=== PATIENT | female | born 1950 | race Caucasian/White ===

== ENCOUNTER → 2017-12-18 | Outpatient (CLI) | payer MEDICARE, OTHER ==
[2017-05-21 17:54] VITALS: BMI 29.2
[~2017-12-18] MED LIST: ASPI-715 PO; ASPI-757 PO; CALC-598 PO; CALC-852 PO; CELE-1 PO; DIA5 PO; EPIN5DRO OP; FEXO180T87 PO; GLUC-222 PO; HYDR-4308 PO; LEVO50TA80 PO; LOR10 PO; MELO-205 PO; MELO-207 PO; MOMR; NITR-57 PO; OMEG-36 PO; RAL60 PO
--- NOTE | 2017-12-18 16:14 | RADIOLOGY IMAGING REPORT ---
[place] [facility] [place] GARRETT CHURCHILL : [id number] MR: [id number] V: [id number] EXAM DATE: [id number] ORDERING PHYSICIAN: KYLEE BRIGHT TECHNOLOGIST: Nikki Cortes PROCEDURE:BILATERAL DIGITAL SCREENING MAMMOGRAM WITH CAD ASSISTED INTERPRETATION & 3D TOMOSYNTHESIS COMPARISON:Mammogram 06/19/2016 and 12/12/2015. INDICATIONS:SCREENING FINDINGS: Breast tissue demonstrates scattered fibroglandular tissue elements. There is no suspicious mass, calcification, or architectural distortion. Benign calcifications are seen in the Right breast, stable. DIAGNOSTIC CATEGORY 2--BENIGN FINDING. RECOMMENDATIONS: ROUTINE MAMMOGRAM AND CLINICAL EVALUATION. IMPRESSION: BIRADS 2: Benign finding. No mammographic evidence for malignancy. Dictated by: Efra Brizuela M.D. on 12/18/2017 at 14:39 Transcribed by: UZMA on 12/18/2017 at 14:49 Approved by: Efra Brizuela M.D. on 12/18/2017 at 16:13 [facility]
== END ==
LOC: MAMO 01:40
PROVIDERS: ATTEND Family Medicine
DX: Z12.31 Encounter for screening mammogram for malignant neoplasm of breast (principal)
CPT/HCPCS: 77063; 77067

== ENCOUNTER → 2019-02-11 | Outpatient (CLI) | payer MEDICARE, OTHER ==
[2017-05-21 17:54] VITALS: BMI 29.2
[~2019-02-11] MED LIST changes: -HYDR-4308 PO; +HYDR-654 PO
--- NOTE | 2019-02-17 15:25 | RADIOLOGY IMAGING REPORT ---
FACILITY: [facility] [place] PATIENT NAME: GARRETT CHURCHILL : [id number] MR: [id number] V: [id number] EXAM DATE: ORDERING PHYSICIAN: KYLEE BRIGHT TECHNOLOGIST: Marylin Delatorre PROCEDURE: BILATERAL DIGITAL SCREENING MAMMOGRAM WITH CAD ASSISTED INTERPRETATION & 3D TOMOSYNTHESIS. REASON FOR STUDY: Screening. FAMILY HISTORY OF BREAST CANCER: None. BREAST PROCEDURES/TREATMENTS: None. VIEWS OBTAINED: 2D & 3D full field CC & MLO projections. BREAST DENSITY: There are scattered areas of fibroglandular density. MAMMOGRAM FINDINGS: Right breast, there are no mass lesions, architectural distortions, or clustering of suspicious microcalcifications. No interval change when compared to the previous studies. Left breast, in the posterior 1/3 medial aspect just medial to the nipple line in the retro glandular fat there is an interval appearance of a 4mm breast asymmetry. This is not definitively correlated on the MLO view. The remainder of the Left breast is unremarkable. No additional mass lesions, architectural distortions, or any clustering of suspicious microcalcifications are identified. IMPRESSION: BIRADS 0: Incomplete. DIAGNOSTIC CATEGORY 0--INCOMPLETE: NEED ADDITIONAL IMAGING EVALUATION. RECOMMENDATIONS: ADDITIONAL MAMMOGRAPHIC VIEWS REQUIRED: LEFT BREAST. Recommend Spot compression views in CC technique for the asymmetry in the deep medial aspect of the Left breast. Recommend 90 degree medial lateral view. Ultrasound if indicated. Dictated by: Travis Silva M.D. on 02/11/2019 at 18:55 Transcribed by: UZMA on 02/12/2019 at 11:52 Approved by: Travis Silva M.D. on 02/17/2019 at 15:20 [facility]
== END ==
LOC: MAMO 01:35
PROVIDERS: ATTEND Family Medicine
DX: R92.2 Inconclusive mammogram (principal); Z80.3 Family history of malignant neoplasm of breast
CPT/HCPCS: 77063; 77067

== ENCOUNTER 2019-02-22 16:04 | Emergency (ER) | payer MEDICARE, OTHER ==
[2017-05-21 17:54] VITALS: Wt 77.1 kg
[2019-02-22 16:06] VITALS: BP 144/79
--- NOTE | 2019-02-22 16:16 | ER Report ---
History and Physical Time Seen By MD: 16:13 Hx. of Stated Complaint: FELL ON RIGHT KNEE. DISLOCATED PATELLA. EMS RESET PATELLA WHILE TRANSFERING PATIENT HPI/ROS CHIEF COMPLAINT: Patellar dislocation HISTORY OF PRESENT ILLNESS: Patient is a 68-year-old female here with complaints of suspected patellar dislocation of the right knee. Patient reports that she hasn't attempted to brace herself and fell hearing a pop in the right knee with lateral displacement of the patella. Patient reports that by time of EMS arrival she had attempted to transfer and felt another distinct popping sensation in the right knee with relocation of the patella. Patient is neurovascularly intact in the distal extremity with good capillary refill, strong pulses. REVIEW OF SYSTEMS: Constitutional: No fever, no chills. Musculoskeletal: Right well aligned patella with no obvious bony abnormality Skin: Small contusion to the anterior knee Neurological: Neurovascular exam intact in distal extremity Allergies: Coded Allergies: Opioids - Morphine Analogues (Verified Allergy, Intermediate, HALLUCINATIONS AND SOME DIZZINESS, 02/22/19) esomeprazole (Verified Allergy, Intermediate, SORE JOINTS, ALL OVER ACHINESS, 02/22/19) codeine (Verified Allergy, Mild, 02/22/19) penicillin G (Verified Allergy, Mild, 02/22/19) celecoxib (Verified Adverse Reaction, Intermediate, HEART BURN, IRRITATES HIATAL HERNIA , 02/22/19) Home Meds Reported Medications Meloxicam (MELOXICAM) 15 Mg Tablet, 0.5 TAB PO BID 05/13/17 Fexofenadine Hcl (FEXOFENADINE HCL) 180 Mg Tablet, 180 MG PO QDAY 06/24/16 Calcium Carbonate/Vitamin D3 (CALCIUM + VITAMIN D TABLET) 1 Each Tablet, 1 EACH PO BID 06/24/16 Levothyroxine Sodium (SYNTHROID) 50 Mcg Tablet, 50 MCG PO QDAY, TAB 06/24/16 Discontinued Reported Medications Hydrocodone Bit/Acetaminophen (NORCO 7.5-325 TABLET) 1 Each Tablet, 1-2 EACH PO Q4-6H PRN for PAIN, #30 05/22/17 Discontinued Scripts Aspirin (ASPIRIN) 325 Mg Tablet, 325 MG PO QDAY, #30 TAB Prov:CHANOSG DO 05/22/17 Hx Smoking: No Smoking Status: Never Smoker Hx Substance Use Disorder: No Hx Alcohol Use: Yes Constitutional Vital Sign - Last 24 Hours 02/22/19 02/22/19 16:06 16:30 Temp 99.1 Pulse 60 69 Resp 20 B/P (MAP) 144/79 Pulse Ox 94 90 O2 Delivery Room Air Physical Exam General Appearance: The patient is alert, has no immediate need for airway protection and no signs of toxicity. No acute distress Neurological: Neurovascular exam intact in distal right lower extremity with intact sensation and motor strength Skin: Small contusion to the anterior right knee Musculoskeletal: Mild tenderness on palpation, no obvious bony deformity of the right knee DIFFERENTIAL DIAGNOSIS: After history and physical exam differential diagnosis was considered for patellar dislocation, fracture, vascular compromise, contusion Medical Decision Making EKG/Imaging Imaging Please see official radiology report, no acute osseous injury identified ED Course/Re-evaluation ED Course Patient is a 68-year-old female here with complaints of right knee pain status post patellar dislocation and subsequent relocation prior to evaluation. Patient was neurovascularly intact at time of evaluation distal to the knee. X-ray imaging was completed to rule out underlying fracture. Recommend PCP follow-up. Return precautions provided. Decision to Disposition Date: Feb 22, 2019 Decision to Disposition Time: 16:50 Depart Departure Latest Vital Signs Vital Signs Date Time Temp Pulse Resp B/P (MAP) Pulse Ox O2 Delivery O2 Flow Rate FiO2 02/22/19 16:30 69 90 02/22/19 16:06 99.1 20 144/79 Room Air Impression: Primary Impression: Patellar dislocation Condition: Improved Disposition: HOME OR SELF-CARE Referrals: KYLEE BRIGHT DO (PCP) Patient Instructions: Patellar Dislocation (ED) Additional Instructions: Please return promptly if you have a recurrent episode of dislocation. Please rest, apply ice, take NSAIDs as needed. ANTONIETA STONE DO Feb 22, 2019 16:16
--- NOTE | 2019-02-22 16:50 | RADIOLOGY IMAGING REPORT ---
FACILITY: [facility] PATIENT NAME: Helen Alcaraz : 1950 MR: [id number] V: [id number] EXAM DATE: ORDERING PHYSICIAN: ANTONIETA STONE TECHNOLOGIST: Location: [facility] Patient: Helen Alcaraz : 1950 Visit/Account:[id number] Date of Sevice: 02/22/2019 KNEE 3 VIEW RIGHT Indication: Pain after fall Comparison: None available Findings: No evidence of fracture, dislocation, or acute osseous abnormality of the right knee. There is mild tricompartmental joint space narrowing. The patella is relatively high riding. No evidence of joint effusion. There is no focal soft tissue abnormality. No evidence of radiopaque foreign body. IMPRESSION: 1.No acute osseous abnormality of the right knee Report Dictated By: Gurwinder Jean Baptiste at 02/22/2019 4:42 PM Report E-Signed By: Gurwinder Jean Baptiste at 02/22/2019 4:42 PM WSN:[id number]
== END 2019-02-22 17:13 | disposition home or self-care (01) ==
LOC: ER 16:13
DX: S83.004A Unspecified dislocation of right patella, initial encounter (principal)
CPT/HCPCS: 99283

== ENCOUNTER → 2019-03-10 | Outpatient (CLI) | payer MEDICARE, OTHER ==
[2017-05-21 17:54] VITALS: BMI 29.2
--- NOTE | 2019-03-10 16:21 | RADIOLOGY IMAGING REPORT ---
FACILITY: [facility] PATIENT NAME: GARRETT CHURCHILL : [id number] MR: [id number] V: [id number] EXAM DATE: ORDERING PHYSICIAN: KYLEE BRIGHT TECHNOLOGIST: Marylin Delatorre PROCEDURE:LEFT DIGITAL MAMMOGRAM DIAGNOSTIC WITH CAD ASSISTED INTERPRETATION & 3D TOMOSYNTHESIS REASON FOR STUDY: Further evaluation. COMPARISON STUDIES: 02/11/19, 12/18/17, 06/19/16, 01/10/15, 06/30/14, 04/04/14, 03/24/14, 03/17/13. MAMMOGRAM VIEWS OBTAINED: 2D & 3D full field Left mediolateral view & 2D & 3D Spot compression view in the Left CC projection. MAMMOGRAM FINDINGS: The previously noted small asymmetry in the medial portion of the Left breast in the posterior 1/3 appears compressible and apparently represented summation shadow. DIAGNOSTIC CATEGORY 1--NEGATIVE IMPRESSION: BIRADS 1: Negative. Dictated by: Yen Omalley M.D. on 03/10/2019 at 13:24 Transcribed by: UZMA on 03/10/2019 at 14:05 Approved by: Yen Omalley M.D. on 03/10/2019 at 16:16 [facility]
== END ==
LOC: MAMO 04:11
PROVIDERS: ATTEND Family Medicine
DX: R92.2 Inconclusive mammogram (principal)
CPT/HCPCS: 77061; 77065